=== PATIENT | male | born 1965 | race Caucasian/White ===

== ENCOUNTER 2018-04-15 15:52 | Emergency (ER) | payer OTHER ==
[2018-04-15 16:00] VITALS: BP 126/80; PULSE 52; TEMP 97.7; BMI 29.6
[2018-04-15] MEDS ORDERED: diazePAM 5 MG TABLET PO ONE (16:27)
[2018-04-15] MEDS ORDERED: KETOROLAC TROMETHAMINE 30 MG/1 ML VIAL IM ONE (16:27)
[2018-04-15] MEDS ORDERED: diazePAM 5 MG TABLET ONE (16:32)
[2018-04-15] MEDS ORDERED: KETOROLAC TROMETHAMINE 30 MG/1 ML VIAL ONE (16:32)
--- NOTE | 2018-04-15 16:34 | PDOC ---
History of Present Illness - General Chief Complaint: Back Pain Stated Complaint: BACK PAIN History Source: Patient Exam Limitations: No Limitations - History of Present Illness Initial Comments: 04/15/18 16:29 52 yo male with h/o chronic back pain here with c/o lower back pain. pt states he was doing physical therapy but he stopped few weeks ago, suddenly strained his back. saw his primary dr girard. who prescribed a medrol dose willard pt states sxs are getting worse. no bowel or bladder incontinence. walking ok. worse pain with changing from sitting to standing. no f/c no dysuria or frequency. no new weakness or numbness. pain radiates down right leg. has not had imaging of his back. states dr girard ordering outpt MRI. Past History - Past Medical History Allergies/Adverse Reactions: Allergies Allergy/AdvReac Type Severity Reaction Status Date / Time No Known Allergies Allergy Verified 04/15/18 15:55 Home Medications: Ambulatory Orders Acetaminophen [Tylenol] 500 mg PO QID PRN #100 capsule MDD 4 04/15/18 Cyclobenzaprine HCl [Flexeril -] 5 mg PO TID PRN #20 tablet 04/15/18 Methylprednisolone [Medrol Dose Willard] 4 mg PO ASDIR 04/15/18 COPD: No DVT: Yes Kidney Stones: Yes - Suicide/Smoking/Psychosocial Hx Smoking History: Never smoked Have you smoked in the past 12 months: No Information on smoking cessation initiated: No Hx Alcohol Use: No Drug/Substance Use Hx: No Substance Use Type: None Review of Systems - Review of Systems Constitutional: No: Chills, Diaphoresis, Fever Respiratory: No: Cough, Orthopnea Cardiac (ROS): No: Chest Pain ABD/GI: No: Abdominal Distended Musculoskeletal: Yes: Back Pain Integumentary: No: Bruising, Change in Color Neurological: No: Headache, Numbness All Other Systems: Reviewed and Negative *Physical Exam - Vital Signs Last Vital Signs Temp Pulse Resp BP Pulse Ox 97.7 F 52 L 18 126/80 97 04/15/18 15:52 04/15/18 15:52 04/15/18 15:52 04/15/18 15:52 04/15/18 15:52 - Physical Exam Comments: 04/15/18 16:31 awake alert lungs clear bilatearlly heart rrr no mrg abd soft nt nd. flank nontender. bilat lower ext 5/5 . sensation intact bilaterally DF/ PF kne flex/ ext and hip flex ext 5/5 Moderate Sedation - Procedure Monitoring Vital Signs: Procedure Monitoring Vital Signs Temperature 97.7 F 04/15/18 15:52 Pulse Rate 52 L 04/15/18 15:52 Respiratory Rate 18 04/15/18 15:52 Blood Pressure 126/80 04/15/18 15:52 O2 Sat by Pulse Oximetry (%) 97 04/15/18 15:52 Medical Decision Making - Medical Decision Making 04/15/18 16:34 pt with chronic low back pain. on steroids. normal nuero exam. plan outpt mri as pcp setting up. pain medication here with toradol and valium. 04/15/18 16:50 pt istop report shows he receives multiple prescriptions for xanax . will be unable to prescribe valium called pharmacy to cancel prescriptions. 04/15/18 16:57 instead of valium will be given flexeril 5 mg instead. d/w pharmacist pt called to inform. no refills. *DC/Admit/Observation/Transfer Diagnosis at time of Disposition: Low back strain - Discharge Dispostion Disposition: HOME Condition at time of disposition: Improved - Prescriptions Prescriptions: Acetaminophen [Tylenol] 500 mg PO QID PRN #100 capsule MDD 4 PRN Reason: Pain Cyclobenzaprine HCl [Flexeril -] 5 mg PO TID PRN #20 tablet PRN Reason: low back pain - Referrals Referrals: Dov Girard MD [Primary Care Provider] - - Patient Instructions Printed Discharge Instructions: DI for Back Strain or Sprain Additional Instructions: you can take muscle relaxer valium 5 mg every 8 hrs as needed for low back pain and muscle spasm. follow up with Dr Girard to arrange outpatient MRI. return for sudden weakness numbness difficulty going to the bathroom or any concerns. you can continue taking medrol dose willard as prescribed. when complete you can take motrin 600 mg every 8 hrs as needed for pain. take with food. do not mix valium with alcohol, or take before work. you shoud not drive a car while taking medication. - Post Discharge Activity
== END 2018-04-15 16:52 | disposition home or self-care (01) ==
LOC: FER 15:52
PROC: 3E0233Z Introduction of Anti-inflammatory into Muscle, Percutaneous Approach (ICD-10-PCS; principal; 2018-04-15)
DX: S39.012A Strain of muscle, fascia and tendon of lower back, initial encounter (principal); X58.XXXA Exposure to other specified factors, initial encounter; Y93.89 Activity, other specified; Y92.89 Other specified places as the place of occurrence of the external cause
CPT/HCPCS: 99281-25

== ENCOUNTER 2021-06-04 07:50 | Day surgery (SDC) | payer OTHER ==
[2021-06-01 15:58] VITALS: BMI 28.8
[2021-06-04] MEDS ORDERED: LIDOCAINE HCL 1%, 10 MG/ML (20ML VIAL) ONE (07:59)
[2021-06-04] MEDS ORDERED: BUPIVACAINE HCL 50 ML ONE (07:59)
[2021-06-04] MEDS ORDERED: MIDAZOLAM HCL 2 MG/2 ML SINGLE DOSE VIAL ONE ×2 (08:30)
[2021-06-04] MEDS ORDERED: PROPOFOL 20 ML ONE (09:10)
[2021-06-04] MEDS ORDERED: oxyCODONE HCL 5 MG TABLET PO PRN (10:06)
[2021-06-04] MEDS ORDERED: ONDANSETRON 4 MG/2 ML VIAL IVPUSH PRN (10:06)
[2021-06-04] MEDS ORDERED: PROMETHAZINE HCL 25 MG/1 ML VIAL IVPUSH PRN (10:06)
[2021-06-04 10:09] VITALS: TEMP 97.7
[2021-06-04] MEDS ORDERED: LACTATED RINGERS SOLUTION 1,000 ML IV SCH (10:15)
[2021-06-04 11:57] VITALS: BP 110/65; PULSE 61
== END 2021-06-04 11:35 | disposition home or self-care (01) ==
LOC: FASU 07:50
PROVIDERS: ATTEND Orthopaedic Surgery
PROC: 0LB70ZZ Excision of Right Hand Tendon, Open Approach (ICD-10-PCS; 2021-06-04)
PROC: 01N50ZZ Release Median Nerve, Open Approach (ICD-10-PCS; principal; 2021-06-04 09:24)
DX: G56.01 Carpal tunnel syndrome, right upper limb (principal); M65.841 Other synovitis and tenosynovitis, right hand
CPT/HCPCS: 88304-TC; 94760

== ENCOUNTER 2021-06-24 04:19 | Day surgery (SDC) | payer OTHER ==
[2021-06-22 13:12] VITALS: BMI 28.8
[~2021-06-24 04:19] MED LIST: BUPIVACAINE HCL/PF 0.5% (5MG/ML) 10 ML VIAL IJ ONE; LIDOCAINE HCL 1%, 10 MG/ML (20ML VIAL) NR ONE
[2021-06-24] MEDS ORDERED: DEXMEDETOMIDINE HCL 200 MCG/2 ML IVPB ONE (07:13)
[2021-06-24] MEDS ORDERED: ACETAMINOPHEN INJECTION 200 ML IVPB ONE (07:15)
[2021-06-24] MEDS ORDERED: PROPOFOL 20 ML ONE ×4 (07:28→08:17)
[2021-06-24] MEDS ORDERED: LIDOCAINE HCL/PF 2% SDV 5ML VIAL ONE (07:29)
[2021-06-24] MEDS ORDERED: KETOROLAC TROMETHAMINE 30 MG/1 ML VIAL ONE (07:29)
[2021-06-24] MEDS ORDERED: ceFAZolin SODIUM 1 GM VIAL ONE (07:29)
[2021-06-24] MEDS ORDERED: KETAMINE HCL 200 MG/20 ML VIAL ONE (07:34)
[2021-06-24] MEDS ORDERED: MIDAZOLAM HCL 2 MG/2 ML SINGLE DOSE VIAL ONE ×2 (07:34→08:06)
[2021-06-24] MEDS ORDERED: BUPIVACAINE HCL/PF 0.5% (5MG/ML) 10 ML VIAL ONE (07:46)
[2021-06-24] MEDS ORDERED: LIDOCAINE HCL 1%, 10 MG/ML (20ML VIAL) ONE (07:46)
[2021-06-24] MEDS ORDERED: LIDOCAINE HCL 1%, 10 MG/ML (20ML VIAL) NR ONE (08:17)
[2021-06-24] MEDS ORDERED: BUPIVACAINE HCL/PF 0.5% (5MG/ML) 10 ML VIAL IJ ONE (08:17)
[2021-06-24] MEDS ORDERED: ROCURONIUM BROMIDE 50 MG/5 ML SYRINGE ONE (08:40)
[2021-06-24 10:28] VITALS: BP 114/76; PULSE 62; TEMP 97.9
== END 2021-06-24 09:50 | disposition home or self-care (01) ==
LOC: JASU-SURG 04:19
PROVIDERS: ATTEND Orthopaedic Surgery
PROC: 0LB80ZZ Excision of Left Hand Tendon, Open Approach (ICD-10-PCS; 2021-06-24)
PROC: 01N50ZZ Release Median Nerve, Open Approach (ICD-10-PCS; principal; 2021-06-24 08:00)
DX: G56.02 Carpal tunnel syndrome, left upper limb (principal); M65.842 Other synovitis and tenosynovitis, left hand
CPT/HCPCS: 88304-TC